=== PATIENT | male | born 1940 | race Caucasian/White ===

== ENCOUNTER 2020-04-07 05:59 | Day surgery (SDC) | payer MEDICARE, OTHER ==
[~2020-04-07 05:59] MED LIST: Lactated Ringers 1,000 ML IV SCH; Lidocaine 1%/Sod Bicarbonate in NS 8.4% 1 ML Syringe IDERM PRN; Sodium Chloride 0.9% 10 ML Syringe FLUSH PRN
[2020-04-07] MEDS ORDERED: Magnesium Hydroxide 400 MG/5 ML Susp 30 ML Cup PO PRN (06:00)
[2020-04-07] MEDS ORDERED: Acetaminophen 325 MG Tab PO SCH (06:00)
[2020-04-07] MEDS ORDERED: Pregabalin 25 MG Cap PO SCH (06:00)
[2020-04-07] MEDS ORDERED: Sennosides 8.6 MG Tab PO PRN (06:00)
[2020-04-07] MEDS ORDERED: oxyCODONE ER 10 MG TAB.ER PO SCH (06:00)
[2020-04-07] MEDS ORDERED: Bisacodyl 5 MG Tab PO PRN (06:00)
[2020-04-07] MEDS ORDERED: Naloxone 0.4 MG/ML SDV IVPUSH PRN (06:00)
[2020-04-07] MEDS ORDERED: Cyclobenzaprine 10 MG Tab PO PRN (06:00)
[2020-04-07] MEDS ORDERED: Morphine 2 MG/ML SYRINGE IVPUSH PRN (06:00)
[2020-04-07] MEDS ORDERED: Ondansetron 4 MG/2 ML SDV IVPUSH PRN (06:00)
[2020-04-07] MEDS ORDERED: Docusate Sodium 100 MG Cap PO PRN (06:00)
--- NOTE | 2020-04-07 06:48 | PCM.PREANE ---
Preanesthetic Assessment - Anesthesia/Transfusion/Family Hx Anesthesia History: Prior Anesthesia Without Reaction Transfusion History: No Prior Transfusion(s) - Review of Systems General: No Symptoms Pulmonary: No Symptoms Cardiovascular: No Symptoms Gastrointestinal: No Symptoms Neurological: No Symptoms Other: Reports: None - Physical Assessment NPO Status Date: 04/06/20 NPO Status Time: 20:00 Vital Signs: Last Vital Signs Temp 97.2 F 04/07/20 06:05 Pulse 72 04/07/20 06:05 Resp 16 04/07/20 06:05 BP 141/91 H 04/07/20 06:05 Pulse Ox 95 04/07/20 06:05 Height: 1.75 m Weight: 83.461 kg ASA Class: 2 Dentition: Reports: Royal(s), Broken Tooth/Teeth, Missing Tooth/Teeth Thyro-Mental Finger Breadths: 3 Mouth Opening Finger Breadths: 3 ROM/Head Extension: Limited/Partial (due to cervical fusion) Lungs: Clear to Auscultation Cardiovascular: Regular Rate - Lab Values: Laboratory Last Values COVID-19 PCR Not detected (NOT DETECT) 04/03/20 11:05 - Allergies Allergies/Adverse Reactions: Allergies Allergy/AdvReac Type Severity Reaction Status Date / Time No Known Allergies Allergy Verified 04/03/20 10:01 - Acknowledgements Anesthesia Type Planned: Spinal, Regional Block (Rt adductor canal postoperatively) Pt an Appropriate Candidate for the Planned Anesthesia: Yes Alternatives and Risks of Anesthesia Discussed w Pt/Guardian: Yes Pt/Guardian Understands and Agrees with Anesthesia Plan: Yes PreAnesthesia Questionnaire HEENT History: Reports: Impaired Vision, Other (See Below) Other HEENT History: wears glasses, has hearing aids Cardiovascular History: Reports: High Cholesterol, Hypertension, Other (See Below) Other Cardiovascular History: chest pain Gastrointestinal History: Reports: Diverticulosis Musculoskeletal History: Reports: Osteoarthritis Psychiatric History: Reports: None Endocrine/Metabolic History: Reports: None Hematologic History: Reports: None Immunologic History: Reports: None Oncologic (Cancer) History: Reports: None Dermatologic History: Reports: None - Past Surgical History Head Surgeries/Procedures: Reports: None HEENT Surgical History: Reports: Cataract Surgery GI Surgical History: Reports: Colonoscopy Endocrine Surgical History: Reports: None Neurological Surgical History: Reports: C-Spine, Lumbar Spine, Spinal Fusion - SUBSTANCE USE Smoking Status *Q: Never Smoker Days Per Week of Alcohol Use: 5 Number of Drinks Per Day: 1 Total Drinks Per Week: 5 Recreational Drug Use History: No - HOME MEDS Home Medications: Home Meds Aspirin 81 mg PO DAILY 04/03/20 [History] Beta-Carotene(A) w/C & E/Min [Prosight] 1 tab PO Q48H 04/03/20 [History] Cholecalciferol (Vitamin D3) [Vitamin D3] 2,000 unit PO BID 04/03/20 [History] Fish Oil/Kohler-3 Fatty Acids [Fish Oil 1,000 MG] 1 gm PO DAILY 04/03/20 [History] Herbal Drugs [Colon Herbal Cleanser] 1 cap PO DAILY 04/03/20 [History] Sildenafil [Viagra] 100 mg PO ASDIRECTED PRN 04/03/20 [History] atorvaSTATin [Lipitor] 10 mg PO DAILY 04/03/20 [History] hydroCHLOROthiazide [Hydrochlorothiazide] 12.5 mg PO [place] 04/03/20 [History] - CURRENT (IN HOUSE) MEDS Current Meds: Current Medications Acetaminophen (Tylenol) 975 mg PO ONETIME [facility] Stop: 04/07/20 16:00 Last Admin: 04/07/20 06:15 Dose: 975 mg Documented by: Aspirin (Ecotrin) 325 mg PO BID [facility] Bisacodyl (Dulcolax) 5 mg PO DAILY PRN PRN Reason: Constipation Morphine Sulfate 8 mg/Epinephrine HCl 0.3 mg/Cefuroxime Sodium 750 mg/Ketorolac Tromethamine 30 mg/Sodium Chloride 7.9 ml 0 mg .XX ASDIRECTED PRN PRN Reason: Pain Cyclobenzaprine HCl (Flexeril) 5 mg PO TID PRN PRN Reason: Spasms Docusate Sodium (Colace) 100 mg PO BID [facility] Docusate Sodium (Colace) 100 mg PO BID PRN PRN Reason: Constipation Lactated Ringer's (Ringers, Lactated) 1,000 mls @ 125 mls/hr IV ASDIRECTED [facility] Stop: 04/07/20 23:00 Last Admin: 04/07/20 06:39 Dose: 125 mls/hr Documented by: Cefazolin Sodium/Dextrose 2 gm (/ Premix) 50 mls @ 100 mls/hr IV Q8H [facility] Stop: 04/07/20 22:29 Ketorolac Tromethamine (Toradol) 15 mg IVPUSH Q6H PRN PRN Reason: Pain Lidocaine/Sodium Bicarbonate (Buffered Lidocaine 1% In Ns 8.4%) 0.25 ml IDERM ONETIME PRN PRN Reason: Prior to IV Start Stop: 04/07/20 18:00 Last Admin: 04/07/20 06:39 Dose: 0.25 ml Documented by: Magnesium Hydroxide (Milk Of Magnesia) 30 ml PO BID PRN PRN Reason: Constipation Morphine Sulfate (Morphine) 2 mg IVPUSH Q2H PRN PRN Reason: Breakthrough Pain Naloxone HCl (Narcan) 0.1 mg IVPUSH Q5M PRN PRN Reason: Oversedation Ondansetron HCl (Zofran) 4 mg IVPUSH Q6H PRN PRN Reason: Nausea/Vomiting Oxycodone HCl (Oxycontin) 10 mg PO ONETIME [facility] Stop: 04/07/20 13:00 Last Admin: 04/07/20 06:16 Dose: 10 mg Documented by: Oxycodone/Acetaminophen (Percocet 325-5 Mg) 1 - 2 tab PO Q4H PRN PRN Reason: Pain Pregabalin (Lyrica) 50 mg PO ONETIME [facility] Stop: 04/07/20 13:00 Last Admin: 04/07/20 06:15 Dose: 50 mg Documented by: Senna (Senna) 8.6 mg PO BID PRN PRN Reason: Constipation Sodium Chloride (Saline Flush) 10 ml FLUSH ASDIRECTED PRN PRN Reason: Keep Vein Open Stop: 04/07/20 18:00 Discontinued Medications Bupivacaine HCl (Sensorcaine-Mpf 0.25%) Confirm Administered Dose 30 ml .ROUTE .STK-MED ONE Stop: 04/07/20 06:14 Cefazolin Sodium (Ancef) Confirm Administered Dose 2 gm .ROUTE .STK-MED ONE Stop: 04/07/20 06:14 Iodine (Iodine 2% Mild Tincture) Confirm Administered Dose 30 ml .ROUTE .STK-MED ONE Stop: 04/07/20 06:14 Tranexamic Acid (Cyklokapron) Confirm Administered Dose 1,000 mg .ROUTE .STK-MED ONE Stop: 04/07/20 06:14 Vancomycin HCl (Vancomycin) Confirm Administered Dose 1 gm .ROUTE .STK-MED ONE Stop: 04/07/20 06:14
[2020-04-07] MEDS ORDERED: Propofol 200 MG/20 ML SDV ONE (07:05)
[2020-04-07] MEDS ORDERED: Midazolam 1 MG/ML 2 ML SDV ONE (07:06)
[2020-04-07] MEDS ORDERED: Bupivacaine 0.75% 30 ML SDV ONE (07:06)
[2020-04-07] MEDS ORDERED: Lidocaine 1% 2 ML ONE (07:29)
[2020-04-07] MEDS ORDERED: ceFAZolin 1 GM Vial ONE (07:30)
[2020-04-07] MEDS ORDERED: Lactated Ringers 1,000 ML ONE (07:35)
[2020-04-07] MEDS: Iodine/Sodium Iodide 2% Tincture 30 ML Bottle ONE ×2 (07:57→08:22)
[2020-04-07] MEDS: ceFAZolin 1 GM Vial ONE ×2 (07:58→08:24)
[2020-04-07] MEDS: Morphine Sulfate 8 MG, EPINEPHrine 0.3 MG, Cefuroxime 750 MG, Ketorolac 30 MG, Sodium C... ONE ×15 (07:59→17:55)
[2020-04-07] MEDS ORDERED: fentaNYL 100 MCG/2 ML SDV IVPUSH PRN (07:59)
[2020-04-07] MEDS: Bupivacaine 0.25% 10 ML SDV ONE ×2 (07:59→08:28)
[2020-04-07] MEDS: Vancomycin 1 GM SDV ONE ×2 (07:59→08:33)
--- NOTE | 2020-04-07 08:03 | PCM.PRNOTE ---
- Free Text/Narrative Note: Post-op Rx: Total Rt knee arthroplasty. Procedure: Rt Adductor canal block with U/S guidance Requesting physician: Dr. Jose D Dykes Risks and benefits discussed with the patient preoperatively including infection, bleeding, incomplete or failed block, possible nerve damage, local anesthetic toxicity. Permit signed. Patient after spinal anesthesia post surgery in PACU, stable , alert and awake. Time out performed at 09:07. Right mid-thigh was prepped with Chloraprep x 1 and allowed to dry. Under aseptic technique, the right femoral artery and sartorius muscle were identified under ultrasound prior to needle insertion. 4" Stimuplex needle #22 G was inserted under US guidance. Under direct visualization of needle tip the injection of 0.5% Ropivacaine with 1:200k epinephrine, total of 25 mls in divided doses, maintaining negative aspiration was completed without problems. Blood return noticed once and the needle repositioned until aspiration was negative. No local anesthetic toxicity was noted. Patient is awake, stable and tolerated the procedure well. Time: 09:07 - 09:13 Please see attached U/S pictures.
[2020-04-07] MEDS ORDERED: EPINEPHrine 1 MG/ML SDV ONE (08:22)
[2020-04-07] MEDS ORDERED: Ropivacaine 0.5% 5 MG/ML 30 ML SDV ONE ×2 (08:23→08:36)
[2020-04-07] MEDS ORDERED: ePHEDrine Sulfate/0.9% NaCl/Pf 25 MG/5 ML SYRINGE IV ONE (08:28)
--- NOTE | 2020-04-07 09:46 | CR ---
Right knee: AP and crosstable lateral views of the right knee were obtained. Comparison: No prior right knee exam. Knee prosthesis is seen. Components are aligned. Soft tissue air is noted from the surgical procedure. No underlying bony abnormality is appreciated. Impression: 1. Satisfactory postop radiographic appearance of recently placed knee prosthesis. Diagnostic code #2 This report was dictated in MDT
--- NOTE | 2020-04-07 10:52 | PCM.OPNOTE ---
- General Post-Op/Procedure Note Date of Surgery/Procedure: 04/07/20 Operative Procedure(s): right total knee arthroplasty Pre Op Diagnosis: right knee osteoarthrosis Post-Op Diagnosis: Same Anesthesia Technique: Local, MAC, Spinal Primary Surgeon: Jose D Nair Anesthesia Provider: Sanford Cunningham Nursing Department Chairperson: Charla Adrian Nursing Department Chairperson: Ana Lilia Wu in mLs: 5 Complications: None Condition: Good Free Text/Narrative:: 7 femur cemented 6 cemented 32x10 9mm PS
[2020-04-07] MEDS ORDERED: [UNRECOGNIZED DRUG - OTHER] PO SCH (12:15)
--- NOTE | 2020-04-07 12:35 | PCM.POSTAN ---
POST ANESTHESIA ASSESSMENT - MENTAL STATUS Mental Status: Alert, Oriented - VITAL SIGNS Vital Signs: VSs at 0858 in PACU: BP: 108/68, HR:90, RR:15, SpO2:91% RA, T:97.4FLast Vital Signs Temp 97.7 F 04/07/20 09:45 Pulse 72 04/07/20 06:05 Resp 14 04/07/20 09:45 BP 118/67 04/07/20 09:45 Pulse Ox 98 04/07/20 09:45 - RESPIRATORY Respiratory Status: Respiratory Rate WNL, Airway Patent, O2 Saturation Stable, Supplemental Oxygen - CARDIOVASCULAR CV Status: Pulse Rate WNL, Blood Pressure Stable - GASTROINTESTINAL GI Status: No Symptoms - PAIN Pain Score: 0 (post SAB) - POST OP HYDRATION Hydration Status: Adequate & Stable
[2020-04-07] MEDS ORDERED: Ketorolac 15 MG/ML SDV IVPUSH PRN (14:00)
[2020-04-07] MEDS: Acetaminophen/oxyCODONE 325-5 MG Tab PO PRN ×3 (14:24→23:58)
[2020-04-07] MEDS: ceFAZolin 2 GM in Premix Bag 1 BAG IV SCH ×2 (15:46→23:33)
[2020-04-07] MEDS: Cholecalciferol (Vitamin D3) 25 MCG Tab PO SCH (20:20)
[2020-04-07] MEDS ORDERED: Docusate Sodium 100 MG Cap PO SCH (21:00)
[2020-04-08] MEDS: Acetaminophen/oxyCODONE 325-5 MG Tab PO PRN ×2 (04:29→09:06)
--- NOTE | 2020-04-08 08:04 | PCM48HPAN ---
Post Anesthesia Note - EVALUATION WITHIN 48HRS OF ANESTHETIC Vital Signs in Normal Range: Yes Patient Participated in Evaluation: Yes Respiratory Function Stable: Yes Airway Patent: Yes Cardiovascular Function Stable: Yes Hydration Status Stable: Yes Pain Control Satisfactory: Yes Nausea and Vomiting Control Satisfactory: Yes Mental Status Recovered: Yes Vital Signs: Last Vital Signs Temp 36.2 C 04/08/20 03:16 Pulse 90 04/08/20 03:18 Resp 18 04/08/20 03:16 BP 118/76 04/08/20 03:16 Pulse Ox 93 L 04/08/20 06:00
[2020-04-08] MEDS ORDERED: Aspirin 325 MG Tab.EC PO SCH (09:00)
[2020-04-08] MEDS ORDERED: Simvastatin 10 MG Tab PO SCH (09:00)
[2020-04-08] MEDS: Cholecalciferol (Vitamin D3) 25 MCG Tab PO SCH (09:05)
[2020-04-08] MEDS: ceFAZolin 2 GM in Premix Bag 1 BAG IV SCH (09:07)
--- NOTE | 2020-04-10 14:07 | PCM.SURGPN ---
- General Info Date of Service: 04/08/20 POD#: 1 Functional Status: Reports: Pain Controlled, Tolerating Diet, Ambulating, Urinating, Incentive Spirometry - Patient Data Vitals - Most Recent: Last Vital Signs Temp 97.9 F 04/08/20 09:02 Pulse 102 H 04/08/20 09:16 Resp 16 04/08/20 09:02 BP 108/78 04/08/20 07:40 Pulse Ox 96 04/08/20 09:16 Weight - Most Recent: 184 lb Med Orders - Current: Current Medications Discontinued Medications Acetaminophen (Tylenol) 975 mg PO ONETIME [facility] Stop: 04/07/20 16:00 Last Admin: 04/07/20 06:15 Dose: 975 mg Documented by: Aspirin (Ecotrin) 325 mg PO BID [facility] Last Admin: 04/08/20 09:06 Dose: 325 mg Documented by: Bisacodyl (Dulcolax) 5 mg PO DAILY PRN PRN Reason: Constipation Bupivacaine HCl (Sensorcaine-Mpf 0.25%) Confirm Administered Dose 30 ml .ROUTE .STK-MED ONE Stop: 04/07/20 06:14 Last Admin: 04/07/20 08:28 Dose: 30 ml Documented by: Bupivacaine HCl (Sensorcaine-Mpf 0.75%) Confirm Administered Dose 30 ml .ROUTE .STK-MED ONE Stop: 04/07/20 07:07 Cefazolin Sodium (Ancef) Confirm Administered Dose 2 gm .ROUTE .STK-MED ONE Stop: 04/07/20 06:14 Last Admin: 04/07/20 08:24 Dose: 2 gm Documented by: Cefazolin Sodium (Ancef) Confirm Administered Dose 2 gm .ROUTE .STK-MED ONE Stop: 04/07/20 07:31 Cholecalciferol (Vitamin D3) 50 mcg PO BID [facility] Last Admin: 04/08/20 09:05 Dose: 50 mcg Documented by: Morphine Sulfate 8 mg/Epinephrine HCl 0.3 mg/Cefuroxime Sodium 750 mg/Ketorolac Tromethamine 30 mg/Sodium Chloride 7.9 ml 0 mg .XX ONETIME ONE Stop: 04/07/20 08:01 Last Admin: 04/07/20 17:55 Dose: Not Given Documented by: Cyclobenzaprine HCl (Flexeril) 5 mg PO TID PRN PRN Reason: Spasms Last Admin: 04/08/20 03:11 Dose: 5 mg Documented by: Docusate Sodium (Colace) 100 mg PO BID [facility] Docusate Sodium (Colace) 100 mg PO BID PRN PRN Reason: Constipation Ephedrine Sulfate (Ephedrine 25 Mg/5 Ml Syringe) Confirm Administered Dose 25 mg IV .STK-MED ONE Stop: 04/07/20 08:29 Epinephrine HCl (Adrenalin) Confirm Administered Dose 1 mg .ROUTE .STK-MED ONE Stop: 04/07/20 08:23 Fentanyl (Sublimaze) 100 mcg IVPUSH ONETIME PRN PRN Reason: Pain Stop: 04/07/20 12:00 Lactated Ringer's (Ringers, Lactated) 1,000 mls @ 125 mls/hr IV ASDIRECTED [facility] Stop: 04/07/20 23:00 Last Admin: 04/07/20 06:39 Dose: 125 mls/hr Documented by: Cefazolin Sodium/Dextrose 2 gm (/ Premix) 50 mls @ 100 mls/hr IV Q8H [facility] Stop: 04/08/20 07:59 Last Admin: 04/08/20 09:07 Dose: 100 mls/hr Documented by: Lidocaine HCl (Xylocaine-Mpf 1%) Confirm Administered Dose 2 mls @ as directed .ROUTE .STK-MED ONE Stop: 04/07/20 07:30 Lactated Ringer's (Ringers, Lactated) Confirm Administered Dose 1,000 mls @ as directed .ROUTE .STK-MED ONE Stop: 04/07/20 07:36 Iodine (Iodine 2% Mild Tincture) Confirm Administered Dose 30 ml .ROUTE .STK-MED ONE Stop: 04/07/20 06:14 Last Admin: 04/07/20 08:22 Dose: 18 ml Documented by: Ketorolac Tromethamine (Toradol) 15 mg IVPUSH Q6H PRN PRN Reason: Pain Lidocaine HCl (Xylocaine-Mpf 1%) Confirm Administered Dose 5 ml .ROUTE .STK-MED ONE Stop: 04/07/20 07:31 Lidocaine/Sodium Bicarbonate (Buffered Lidocaine 1% In Ns 8.4%) 0.25 ml IDERM ONETIME PRN PRN Reason: Prior to IV Start Stop: 04/07/20 18:00 Last Admin: 04/07/20 06:39 Dose: 0.25 ml Documented by: Magnesium Hydroxide (Milk Of Magnesia) 30 ml PO BID PRN PRN Reason: Constipation Midazolam HCl (Versed 1 Mg/Ml) Confirm Administered Dose 2 mg .ROUTE .STK-MED ONE Stop: 04/07/20 07:07 Morphine Sulfate (Morphine) 2 mg IVPUSH Q2H PRN PRN Reason: Breakthrough Pain Naloxone HCl (Narcan) 0.1 mg IVPUSH Q5M PRN PRN Reason: Oversedation Non-Formulary Medication (Beta-Carotene(A) W/C & E/Min) 1 tab PO Q48H [facility] Ondansetron HCl (Zofran) 4 mg IVPUSH Q6H PRN PRN Reason: Nausea/Vomiting Last Admin: 04/07/20 23:06 Dose: 4 mg Documented by: Oxycodone HCl (Oxycontin) 10 mg PO ONETIME [facility] Stop: 04/07/20 13:00 Last Admin: 04/07/20 06:16 Dose: 10 mg Documented by: Oxycodone/Acetaminophen (Percocet 325-5 Mg) 1 - 2 tab PO Q4H PRN PRN Reason: Pain Last Admin: 04/08/20 09:06 Dose: 2 tab Documented by: Pregabalin (Lyrica) 50 mg PO ONETIME [facility] Stop: 04/07/20 13:00 Last Admin: 04/07/20 06:15 Dose: 50 mg Documented by: Propofol (Diprivan 20 Ml) Confirm Administered Dose 400 mg .ROUTE .STK-MED ONE Stop: 04/07/20 07:06 Ropivacaine (Naropin 0.5%) Confirm Administered Dose 0 ml .ROUTE .STK-MED ONE Stop: 04/07/20 08:24 Ropivacaine (Naropin 0.5%) Confirm Administered Dose 30 ml .ROUTE .STK-MED ONE Stop: 04/07/20 08:37 Senna (Senna) 8.6 mg PO BID PRN PRN Reason: Constipation Simvastatin (Zocor) 10 mg PO DAILY [facility] Last Admin: 04/08/20 09:06 Dose: 10 mg Documented by: Sodium Chloride (Saline Flush) 10 ml FLUSH ASDIRECTED PRN PRN Reason: Keep Vein Open Stop: 04/07/20 18:00 Tranexamic Acid (Cyklokapron) Confirm Administered Dose 1,000 mg .ROUTE .STK-MED ONE Stop: 04/07/20 06:14 Last Admin: 04/07/20 08:36 Dose: 1,000 mg Documented by: Vancomycin HCl (Vancomycin) Confirm Administered Dose 1 gm .ROUTE .STK-MED ONE Stop: 04/07/20 06:14 Last Admin: 04/07/20 08:33 Dose: 1 gm Documented by: - Exam Wound/Incisions: Dressing Dry and Intact General: Alert, Cooperative, No Acute Distress Lungs: Normal Respiratory Effort Extremities: Other (NVS intact for BLE. Maddison's negative.) Sepsis Event Note - Evaluation Sepsis Screening Result: No Definite Risk - Focused Exam Date Exam was Performed: 04/10/20 Time Exam was Performed: 14:05 - Problem List Review Problem List Initiated/Reviewed/Updated: Yes - Assessment Assessment (Free Text/Narrative):: POD#1 - right TKA - Plan Plan (Free Text/Narrative):: 1. Hgb 11.9. 2. Discharge to home today. 3. ASA 325mg PO BID, frequent mobility, TEDs. The pt was evaluated by Dr. Nair today.
--- NOTE | 2020-04-11 12:10 | OR ---
DATE OF OPERATION: 04/07/2020 SURGEON: Jose D Nair MD OPERATION PERFORMED: Right total knee arthroplasty. PREOPERATIVE DIAGNOSIS: Right knee osteoarthrosis. POSTOPERATIVE DIAGNOSIS: Right knee osteoarthrosis. ANESTHESIA: Local MAC with spinal. ANESTHESIA PROVIDER: Lin Finn. GREY GOODS MARKER: Charla Adrian PA-C and Ana Lilia Wu LPN ESTIMATED BLOOD LOSS: 5 mL. COMPLICATIONS: None. CONDITION: Stable. IMPLANTS: 1. [place] size 7 cemented PS femur. 2. [place] size 6 cemented [place] tibial base plate. 3. [place] size 6, 9 mm PS X3 polyethylene insert. 4. Culver size 32 x 10 mm cemented asymmetric patella. DESCRIPTION OF PROCEDURE: The patient was identified in the preop holding area. Proper site was marked and identified by the surgeon. The patient was taken back to the operating theater. After adequate anesthesia, the patient's right lower extremity had a nonsterile tourniquet applied and it was sterilely prepped and draped in the usual sterile fashion. OR time-out was performed. The patient received 2 g IV Ancef. At this time, the right lower extremity was exsanguinated. Tourniquet was insufflated to 300 mmHg. Standard medial parapatellar incision was made. Medial parapatellar arthrotomy was created. Deep fibers of the MCL were raised and anterior fat pad was resected. At this time, attention was turned to the patella. Patella measured 22, it was resected to a 13 for 32 x 10 mm patella. Drill holes were then drilled and found to be in adequate position. The drill was then drilled in the distal femur and the intramedullary distal femoral cutting guide was then placed. 8 mm was resected off the distal femur and was found to be an adequate resection. Sizing guide was placed. It was found to be a [place] size 7 cemented PS femur that was shown on the implant record at the beginning of this dictation. The drill holes were drilled for the epicondylar axis using [place] line and epicondyles as reference. At this time, the 4-in- 1 cutting block was placed. An anterior posterior and anterior and posterior chamfer cuts were then completed. Box cut was then compoleted. Attention was turned to the tibia. The posterior medial lateral retractors were placed. The extramedullary tibial guide was placed. It was placed in the old footprint of the ACL. It was aligned with the center of the ankle and 0 degrees of slope, 9 mm was then resected off the unaffected side. There was found to be an acceptable reduction. At this time, posterior osteophytes were removed along with medial and lateral meniscus. A trial implant was placed with a correct sized tibia that was mentioned at the beginning of the dictation. A [place] size 6, 9 mm PS X3 polyethylene insert was then placed. The patient's knee was brought through range of motion. The patella was tracking centrally and was stable to varus and valgus stress. Alignment was found to be roughly at 0 degrees. The tibia was stamped and drilled in proper rotation. The universal tibial base plate was impacted in place. Next, the [place] size 7 cemented PS femur impacted into place and the [place] size 6, 9 mm PS X3 polyethylene insert was placed. The patient's knee was brought into full extension. The patella was then cemented in place at this time. One liter dilute Betadine solution was irrigated through the knee along with 3 L of pulse lavage irrigation with Ancef. Periarticular injection was then completed. The patient's knee was brought through a range of motion. Once the cement had time to set up and it was found to be stable to varus valgus stress, the patella was tracking centrally with full range of motion. At this time, a #2 barbed suture was used for closure of the medial parapatellar arthrotomy. Topical tranexamic acid was placed. 2-0 Vicryl was used subcutaneously, Prineo was used for the skin. The patient tolerated the procedure well and was sent to the PACU in stable condition. MMODAL /[id number] LEIGH
== END 2020-04-08 11:52 | disposition home or self-care (01) ==
LOC: JD.SDS 05:59 → JD.MS 06:02 → JD.SDS 04-08 11:52
PROVIDERS: ATTEND Orthopaedic Surgery
DX: M17.11 Unilateral primary osteoarthritis, right knee (principal); E78.00 Pure hypercholesterolemia, unspecified; I10 Essential (primary) hypertension; Z79.82 Long term (current) use of aspirin; Z11.59 Encounter for screening for other viral diseases; Z79.899 Other long term (current) drug therapy
CPT/HCPCS: 27447; 36415; 73560; 80053; 85027; 97110; 97116; 97161; 97165; 97535; A9270; C1713; C1776; J0171; J0690; J0697; J1885; J2001; J2250; J2270; J2405; J2704; J2795; J3370; J3490; J7120; U0002; 01402; 64450